=== PATIENT | male | born 1995 | race Caucasian/White ===

== ENCOUNTER → 2020-10-27 | Outpatient (CLI) | payer OTHER ==
--- NOTE | 2020-11-12 11:31 | PF ---
[place] [address] PULMONARY FUNCTION REPORT Name: KENY PARDO Room: [facility]#: [id number] Admission: 10/27/20 Attend Phys: Rodo Garcias MD Discharge: Date of : 89 Report #: [id number] THIS REPORT FOR: cc: FAM - No family physician/PCP FAM - No family physician/PCP Stew Morillo MD ~ DOC #: [id number] Stew Morillo MD DATE OF VISIT: 10/27/2020 PULMONARY FUNCTION TEST Only a spirometry was performed. The FEV1/FVC ratio is normal at 76% with an FVC normal at 99%. The FEV1 is also normal at 91%. The FEF 25-75 was normal at 75%. After the administration of a bronchodilator, there is no significant increase in any of these values. The patient's post-bronchodilator FEV1 is noted to be 5.18 liters. IMPRESSION: Normal spirometry. The normal spirometry does not rule out bronchial asthma. Stew Morillo MD AP/MUK <ELECTRONICALLY SIGNED> By: Stew Morillo MD 11/12/20 1131 [id number] Robert Morillo MD /lai
== END ==
LOC: M.PUL 11:00
PROVIDERS: ATTEND Orthopaedic Surgery
DX: J45.998 Other asthma (principal)